=== PATIENT | male | born 1995 | race Caucasian/White ===

== ENCOUNTER 2024-09-26 20:48 | Emergency (ER) | payer BC ==
[2024-09-26] MEDS ORDERED: Lidocaine 1% 5 ML VIAL INFILT ONE (20:49)
== END 2024-09-26 21:30 | disposition home or self-care (01) ==
LOC: FB.ED 20:48
DX: S81.011A Laceration without foreign body, right knee, initial encounter (principal); W26.8XXA Contact with other sharp object(s), not elsewhere classified, initial encounter; Y93.89 Activity, other specified
CPT/HCPCS: 12001; 99282; J2003